=== PATIENT | male | born 1975 | race Caucasian/White ===

== ENCOUNTER 2020-10-04 12:00 | Emergency (ER) | payer SELFPAY ==
[~2020-10-04] VITALS: Ht 172.7 cm; Wt 81.0 kg
[2020-10-04] MEDS ORDERED: DEXAMETHASONE SOD PHOS 10 MG/ML VIAL. PO ONE (13:45)
[2020-10-04] MEDS ORDERED: IV NORMAL SALINE 1,000ML 1,000 ML IV ONE (14:00)
--- NOTE | 2020-10-04 14:09 | EKG ---
[address] [address] Test Date: 2020-10-04 Test Time: 12:46:41 Pat Name: RICK OROZCO Department: Room: Gender: M [employer] Operator: MIKEY : 1975 Requested By: MORA NAIK Order Number: [id number] Reading MD: Measurements Intervals [place] Rate: 103 P: 37 NV: 156 QRS: 8 QRSD: 74 T: 35 QT: 318 QTc: 418 Interpretive Statements SINUS TACHYCARDIA OTHERWISE NORMAL ECG RI6.02 No previous ECG available for comparison
--- NOTE | 2020-10-04 14:16 | RAD ---
INDICATION: Reason: COUGH, COVID / Spl. Instructions: / History: COMPARISON: None. FINDINGS: Single view of chest obtained. Mild patchy airspace opacities including at left greater than right lower lung. Cardiac silhouette unremarkable. IMPRESSION: * Mild patchy airspace opacities bilaterally. Infectious etiology is within the differential. Electronically signed by: Ramirez Kruse MD (10/04/2020 2:14 PM) [id number]
[2020-10-04 14:47] LABS: CALCIUM 7.9 mg/dL (8.5-10.1); CREATININE 0.7 mg/dL (0.7-1.3); POTASSIUM 3.9 mmol/L (3.5-5.1)
[2020-10-04 14:53] LABS: ALBUMIN 3.4 g/dL (3.4-5.0); ALBUMIN/GLOBULIN RATIO 0.9 (1.0-1.7); TOTAL BILIRUBIN 0.5 mg/dL (0.2-1.0); TOTAL PROTEIN 7.3 g/dL (6.4-8.2)
[2020-10-04] MEDS ORDERED: AZIT250T6 PO (15:51)
[2020-10-04] MEDS ORDERED: GUAI120L35 PO (15:51)
--- NOTE | 2020-10-04 15:56 | PHYS DOC ---
Past History Past Surgical History: No Surgical History Alcohol Use: None General Adult EDM: Chief Complaint: COUGH HPI: HPI: Patient is a 45-year-old male presents with nonproductive cough, fever. Patient states that he was seen on 09/26 and diagnosed with Covid. Patient denies getting Covid vaccine. Patient states "I am just having trouble sleeping at night because of the cough". "I have been running a fever, and and yesterday my fever was 101". " I have also been taking ibuprofen and Tylenol which is helped a little". Patient denies wheezing, shortness of breath, chest pain. Patient denies nausea/vomiting/diarrhea. Patient is afebrile in the emergency room. Denies medical history. Review of Systems: Review of Systems: Constitutional: Reports fever or chills Eyes: Denies change in visual acuity HENT: Denies nasal congestion or sore throat Respiratory: Reports nonproductive cough, denies shortness of breath Cardiovascular: Denies chest pain or edema GI: Denies abdominal pain, nausea, vomiting, bloody stools or diarrhea : Denies dysuria Musculoskeletal: Denies back pain or joint pain Integument: Denies rash Neurologic: Denies headache, focal weakness or sensory changes Endocrine: Denies polyuria or polydipsia Lymphatic: Denies swollen glands Psychiatric: Denies depression or anxiety Current Medications: Current Meds: Current Medications Medications (Trade) Dose Ordered Sig/Cisco Start Time Stop Time Status Last Admin Dose Admin Dexamethasone Sodium Phosphate (Decadron) 10 mg 1X ONCE 10/04/20 13:45 10/04/20 13:46 DC 10/04/20 14:36 10 MG Sodium Chloride 1,000 ml @ 1,000 mls/hr 1X ONCE 10/04/20 14:00 10/04/20 14:59 DC Allergies: Allergies: Allergies Coded Allergies Type Severity Reaction Last Updated Verified propoxyphene Allergy Severe hallucinations 10/04/20 Yes Physical Exam: PE: Constitutional: Well developed, well nourished, no acute distress, non-toxic appearance. [] HENT: Normocephalic, atraumatic, bilateral external ears normal, oropharynx moist, no oral exudates, nose normal. [] Eyes: PERRLA, EOMI, conjunctiva normal, no discharge. [] Neck: Normal range of motion, no tenderness, supple, no stridor. [] Cardiovascular:Heart rate regular rhythm, no murmur [] Lungs & Thorax: Bilateral breath sounds clear to auscultation [] Abdomen: Bowel sounds normal, soft, no tenderness, no masses, no pulsatile masses. [] Skin: Warm, dry, no erythema, no rash. [] Back: No tenderness, no CVA tenderness. [] Extremities: No tenderness, no cyanosis, no clubbing, ROM intact, no edema. [] Neurologic: Alert and oriented X 3, normal motor function, normal sensory function, no focal deficits noted. [] Psychologic: Affect normal, judgement normal, mood normal. [] Current Patient Data: Labs: Laboratory Tests Test 10/04/20 14:19 Sodium Level 138 mmol/L (136-145) Potassium Level 3.9 mmol/L (3.5-5.1) Chloride Level 102 mmol/L (98-107) Carbon Dioxide Level 22 mmol/L (21-32) Anion Gap 14 (6-14) Blood Urea Nitrogen 12 mg/dL (8-26) Creatinine 0.7 mg/dL (0.7-1.3) Estimated GFR (Cockcroft-Gault) 122.0 BUN/Creatinine Ratio 17 (6-20) Glucose Level 94 mg/dL (70-99) Calcium Level 7.9 mg/dL (8.5-10.1) L Total Bilirubin 0.5 mg/dL (0.2-1.0) Aspartate Amino Transferase (AST) 41 U/L (15-37) H Alanine Aminotransferase (ALT) 41 U/L (16-63) Alkaline Phosphatase 78 U/L (46-116) Total Protein 7.3 g/dL (6.4-8.2) Albumin 3.4 g/dL (3.4-5.0) Albumin/Globulin Ratio 0.9 (1.0-1.7) L Vital Signs: Vital Signs Date Time Temp Pulse Resp B/P (MAP) Pulse Ox O2 Delivery O2 Flow Rate FiO2 10/04/20 14:38 100 12 134/71 (92) 10/04/20 12:28 99.5 96 Room Air EKG: EKG: [] Radiology/Procedures: Radiology/Procedures: []INDICATION: Reason: COUGH, COVID / Spl. Instructions: / History: COMPARISON: None. FINDINGS: Single view of chest obtained. Mild patchy airspace opacities including at left greater than right lower lung. Cardiac silhouette unremarkable. IMPRESSION: * Mild patchy airspace opacities bilaterally. Infectious etiology is within the differential. Electronically signed by: Ramirez Kruse MD (10/04/2020 2:14 PM) [id number] Heart Score: C/O Chest Pain: No Risk Factors: Risk Factors: DM, Current or recent (<one month) smoker, HTN, HLP, family history of CAD, obesity. Risk Scores: Score 0 - 3: 2.5% MACE over next 6 weeks - Discharge Home Score 4 - 6: 20.3% MACE over next 6 weeks - Admit for Clinical Observation Score 7 - 10: 72.7% MACE over next 6 weeks - Early Invasive Strategies Course & Med Decision Making: Course & Med Decision Making Pertinent Labs and Imaging studies reviewed. (See chart for details) [] 45-year-old male presents with nonproductive cough, fever. Patient was diagnosed with Covid on 09/26. Patient's main complaint is cough is keeping him up at night. Patient was given 10 mg of dexamethasone. Patient is refusing an IV and fluids. Patient is afebrile, hemodynamically stable. All labs unremarkable. Chest x-ray shows mild patchy airspace opacities bilaterally. I sent patient home with a prescription for azithromycin and also guaifenesin with codeine for cough. I instructed patient to follow-up with PCP. Patient was given strict return precautions. Patient is hemodynamically stable and able to ambulate on his own. Instructed patient to also take ibuprofen for fever and chills. Patient is appreciative and okay with discharge plan. Dragon Disclaimer: Dragon Disclaimer: This electronic medical record was generated, in whole or in part, using a voice recognition dictation system. Departure Departure: Impression: Primary Impression: Cough Additional Impression: Pneumonia due to 2019-nCoV Disposition: HOME / SELF CARE / HOMELESS Condition: STABLE Referrals: GEORGIANA BECKHAM MD (PCP) Patient Instructions: Cough, Adult, [id number] Additional Instructions: You were seen in the emergency room for cough and fever. I am sending you home with prescription to help with your cough and azithromycin which is an antibiotic. Take the cough medicine as directed for cough. Continue taking ibuprofen for fever and body aches. Please return the emergency room if you have worsening symptoms or concerns. EMERGENCY DEPARTMENT GENERAL DISCHARGE INSTRUCTIONS Thank you for coming to [facility] (ED) today and trusting us with you care. We trust that you had a positivie experience in our Emergency Department. If you wish to speak to the department management, you may call the director at [phone]. YOUR FOLLOW UP INSTRUCTIONS ARE FOLLOWS: 1. Do you have a private Doctor? If you do not have a private doctor, please ask for a resource list of physicians or clinics that may be able to assist you with follow up care. 2. The Emergency Physician has interpreted your x-rays. The X-Ray specialist will also review them. If there is a change in the findings, you will be notified in 48 hours when at all possible. 3. A lab test or culture has been done, your results will be reviewed and you will be notified if you need a change in treatment. ADDITIONAL INSTRUCTIONS AND INFORMATION: 1. Your care today has been supervised by a physician who is specially trained in emergency care. Many problems require more than one evaluation for a complete diagnosis and treatment. We recommend that you schedule your follow up appointment as recommended to ensure complete treatment of you illness or injury. If you are unable to obtain follow up care and continue to have a problem, or if your condition worsens, we recommend that you return to the ED. 2. We are not able to safely determine your condition over the phone nor are we able to give sound medical advice over the phone. For these safety reasons, if you call for medical advice we will ask you to come to the ED for further evaluation. 3. If you have any questions regarding these discharge instructions please call the ED at [phone]. SAFETY INFORMATION: In the interest of safety, wellness, and injury prevention; we encourage you to wear your sealbelt, if you smoke; quite smoking, and we encourage family to use a protective helmet for bicycling and other sporting events that present an increased risk for head injury. IF YOUR SYMPTOMS WORSEN OR NEW SYMPTOMS DEVELOP, OR YOU HAVE CONCERNS ABOUT YOUR CONDITION; OR IF YOUR CONDITION WORSENS WHILE YOU ARE WAITING FOR YOUR FOLLOW UP APPOINTMENT; EITHER CONTACT YOUR PRIMARY CARE DOCTOR, THE PHYSICIAN WHOSE NAME AND NUMBER YOU WERE GIVEN, OR RETURN TO THE ED IMMEDIATELY. Scripts Guaifenesin/Codeine Phosphate (Codeine-Guaifen 10-100 mg/5 ml) 120 Ml Liquid 5 ML PO PRN Q6HRS PRN for cough and congestion MDD 20 Milliliter(s) for 6 Days, #120 ML 0 Refills Prov: MORA NAIK APRN 10/04/20 Azithromycin (AZITHROMYCIN TABLET) 250 Mg Tablet 1 PKG PO UD for COVID for 5 Days, #6 TAB 0 Refills 2 the first day followed by 1 for days 2-5 Prov: MORA NAIK APRN 10/04/20 MORA NAIK APRN Oct 04, 2020 15:56
[2020-10-04 15:58] LABS: BASO % 0 % (0-3); EOS % 0 % (0-3); HEMATOCRIT 41.9 % (39.0-53.0); HEMOGLOBIN 14.4 g/dL (13.0-17.5); LYMPH # 1.5 x10^3/uL (1.0-4.8); LYMPH % 21 % (24-48); MEAN CORPUSCULAR HEMOGLOBIN 31 pg (25-35); MEAN CORPUSCULAR HGB CONC 35 g/dL (31-37); MEAN CORPUSCULAR VOLUME 89 fL (79-100); MONO # 0.4 x10^3/uL (0.0-1.1); MONO % 5 % (0-9); NEUT # 5.2 x10^3uL (1.8-7.7); NEUT % 73 % (31-73); PLATELET COUNT 196 x10^3/uL (140-400); RED BLOOD COUNT 4.69 x10^6/uL (4.30-5.70); RED CELL DISTRIBUTION WIDTH 12.8 % (11.5-14.5); WHITE BLOOD COUNT 7.1 x10^3/uL (4.0-11.0)
[2020-10-04 16:38] VITALS: BP 120/67
== END 2020-10-04 17:29 | disposition home or self-care (01) ==
LOC: ER 12:00
DX: U07.1 COVID-19 (principal); J12.82 Pneumonia due to coronavirus disease 2019; Z88.8 Allergy status to other drugs, medicaments and biological substances
CPT/HCPCS: 36415; 71045; 80053; 85025; 93005; 99285; J1100